=== PATIENT | male | born 1930 | race Caucasian/White ===

== ENCOUNTER 2017-12-07 06:52 | Day surgery (SDC) | payer OTHER, MEDICARE ==
[~2017-12-07] VITALS: Ht 154.9 cm; Wt 62.3 kg
[~2017-12-07 06:52] MED LIST: BISA5EC PO; DEXT40GEL PO; FINA5 PO; FURO20; FURO20 PO; Geri-Hydrolac140 GM TOP; IMIQUIMOD1 EACH TP; INS70/30I SC; INS70/30PN SC; INSULANPEN SC; LIDO5TO TOP; LISI20; LISI5 PO; Lasix40 MG; MEMA10 PO; METO25ER PO; MIRT15ST MM; MUPI2TC TOP; Omeprazole20 M1 PO; SERT50 PO; SIMV40 PO; TAMS.4ER PO; TRAZ50 PO; Toprol Xl25 MG PO; WARF5 PO
[2017-12-07] MEDS ORDERED: FINA5 PO (07:51)
== END 2017-12-07 23:08 | disposition home or self-care (01) ==
LOC: MHTC 06:52
PROC: 5A2204Z Restoration of Cardiac Rhythm, Single (ICD-10-PCS; principal; 2017-12-07)
DX: R06.02 Shortness of breath (principal); I48.91 Unspecified atrial fibrillation; E11.22 Type 2 diabetes mellitus with diabetic chronic kidney disease; I13.0 Hypertensive heart and chronic kidney disease with heart failure and stage 1 through stage 4 chronic kidney disease, or unspecified chronic kidney disease; I50.22 Chronic systolic (congestive) heart failure; N18.3 Chronic kidney disease, stage 3 (moderate); M10.30 Gout due to renal impairment, unspecified site; F17.220 Nicotine dependence, chewing tobacco, uncomplicated; Z95.0 Presence of cardiac pacemaker; Z95.2 Presence of prosthetic heart valve; Z79.4 Long term (current) use of insulin; Z79.899 Other long term (current) drug therapy; Z79.01 Long term (current) use of anticoagulants; Z86.73 Personal history of transient ischemic attack (TIA), and cerebral infarction without residual deficits; Z95.1 Presence of aortocoronary bypass graft; Z88.8 Allergy status to other drugs, medicaments and biological substances; Z88.5 Allergy status to narcotic agent
CPT/HCPCS: 82947; 92960; 93005; 93010; J7120

== ENCOUNTER → 2019-12-08 | Outpatient (CLI) | payer OTHER | LOC: PLD 08:07 → LAB SHORT 08:07 | DX: D48.5 Neoplasm of uncertain behavior of skin (principal) | CPT/HCPCS: 88341; 88342 ==

== ENCOUNTER → 2019-12-08 | Outpatient (CLI) | payer OTHER, MEDICARE | LOC: LAB SHORT 08:14 → PLD 08:14 | DX: D48.5 Neoplasm of uncertain behavior of skin (principal) | CPT/HCPCS: 88342 ==

== ENCOUNTER 2020-03-18 10:55 | Emergency (ER) | payer OTHER, MEDICARE ==
[~2020-03-18] VITALS: Ht 160 cm; Wt 64.9 kg
[2020-03-18] MEDS ORDERED: CLON.1 (11:15)
[2020-03-18] MEDS ORDERED: ALLO100 PO (11:16)
[2020-03-18] MEDS ORDERED: DONE5 PO (11:17)
[2020-03-18] MEDS ORDERED: ZOCOR20 MG PO (11:17)
[2020-03-18] MEDS ORDERED: Zoloft50 MG PO (11:18)
[2020-03-18] MEDS ORDERED: LOSA25 PO (11:19)
[2020-03-18 11:22] LABS: BASOPHILS ABSOLUTE AUTO 0.11 K/mm3 (0.00-0.23); BASOPHILS PERCENT AUTO 1 % (0-2); EOSINOPHILS ABSOLUTE AUTO 0.31 K/mm3 (0.00-0.68); EOSINOPHILS PERCENT AUTO 4 % (0-6); Hematocrit 39.9 % (37.0-53.0); Hemoglobin 12.9 g/dL (13.5-17.5); IMMATURE GRAN ABSOLUTE AUTO 0.05 K/mm3 (0.00-0.10); IMMATURE GRAN PERCENT AUTO 1 % (0-1); LYMPHOCYTES ABSOLUTE AUTO 1.44 K/mm3 (0.84-5.20); LYMPHOCYTES PERCENT AUTO 17 % (21-46); MONOCYTES ABSOLUTE AUTO 0.47 K/mm3 (0.16-1.47); MONOCYTES PERCENT AUTO 6 % (4-13); Mean Corpuscular HGB 32.3 pg (26.0-34.0); Mean Corpuscular HGB Conc 32.3 g/dL (31.5-36.5); Mean Corpuscular Volume 100 fL (80-100); Mean Platelet Volume 9.9 fL (9.1-12.4); NEUTROPHILS ABSOLUTE AUTO 5.95 K/mm3 (1.96-9.15); NEUTROPHILS PERCENT AUTO 72 % (41-73); Platelet Count 171 K/mm3 (150-400); RDW Coefficient Variation 15.4 % (11.7-14.2); RDW Standard Deviation 56.5 fL (35.1-46.3); White Blood Cell Count 8.33 K/mm3 (4.00-11.30)
[2020-03-18 11:43] LABS: Albumin, Blood 3.8 g/dL (3.4-5.0); Bilirubin, Total 0.8 mg/dL (0.1-1.0); Bun/Creatinine Ratio 13.7 (12.0-20.0); Calcium, Blood 8.8 mg/dL (8.5-10.1); Creatinine, Blood 1.46 mg/dL (0.60-1.20); Globulin, Blood 3.9 g/dL (2.2-4.0); Potassium, Blood 3.7 mmol/L (3.5-5.5); Total Protein, Blood 7.7 g/dL (6.4-8.2); Troponin I 0.015 ng/mL (0.000-0.040)
[2020-03-18 11:45] LABS: International Normalized Ratio 3.96; Prothrombin Time Results 39.2 Sec (9.7-11.5)
== END 2020-03-18 12:41 | disposition home or self-care (01) ==
LOC: ER 10:55
PROVIDERS: Emergency Medicine
DX: R06.00 Dyspnea, unspecified (principal); J61 Pneumoconiosis due to asbestos and other mineral fibers; Z20.828 Contact with and (suspected) exposure to other viral communicable diseases; Z88.5 Allergy status to narcotic agent; Z88.8 Allergy status to other drugs, medicaments and biological substances; Z79.01 Long term (current) use of anticoagulants; Z79.899 Other long term (current) drug therapy; Z79.4 Long term (current) use of insulin; I11.0 Hypertensive heart disease with heart failure; I50.9 Heart failure, unspecified; F03.90 Unspecified dementia, unspecified severity, without behavioral disturbance, psychotic disturbance, mood disturbance, and anxiety; I25.810 Atherosclerosis of coronary artery bypass graft(s) without angina pectoris; E11.9 Type 2 diabetes mellitus without complications; E78.5 Hyperlipidemia, unspecified; Z86.73 Personal history of transient ischemic attack (TIA), and cerebral infarction without residual deficits; Z87.891 Personal history of nicotine dependence
CPT/HCPCS: 36415; 71045; 80053; 83735; 83880; 84484; 85025; 85610; 93005; 93010; 99285-25; U0002